=== PATIENT | female | born 1990 | race Caucasian/White ===

== ENCOUNTER → 2018-07-15 | Outpatient (CLI) | payer OTHER ==
[~2018-07-15] MED LIST: ACET500 PO; ALBU90OI INH; ALBU90OI61 INH; ALBUTEROL; AMOCLA875 PO; AMOX; BENADRYL; CEPH500 PO; CRUTCH USE; CYCL10 PO; DIPH50 PO; ERYT.5TO RIGHTEYE; GABA600 PO; HYDACE5 PO; HYDACE5325 PO; HYDR1TAB94 PO; IBUP800 PO; Imitrex100 MG PO; MULVITMINE PO; Naprosyn500 MG PO; ONDA4 PO; ONDA4ODT MM; OXYACE5T PO; Omeprazole20 M1 PO; PRED10 PO; PROM25 PO; RANI150 PO; SERT50 PO; TOPI100 PO; TOPI25 PO; TREXIMET PO; TRILEPTAL; VENL75ER PO; Zofran Odt4 MG SL
[2018-07-15 16:01] LABS: BASOPHILS ABSOLUTE AUTO 0.03 K/mm3 (0.00-0.23); BASOPHILS PERCENT AUTO 0 % (0-2); EOSINOPHILS ABSOLUTE AUTO 0.17 K/mm3 (0.00-0.68); EOSINOPHILS PERCENT AUTO 2 % (0-6); Hematocrit 37.9 % (33.0-51.0); IMMATURE GRAN ABSOLUTE AUTO 0.02 K/mm3 (0.00-0.10); IMMATURE GRAN PERCENT AUTO 0 % (0-1); LYMPHOCYTES ABSOLUTE AUTO 1.71 K/mm3 (0.84-5.20); LYMPHOCYTES PERCENT AUTO 24 % (21-46); MONOCYTES ABSOLUTE AUTO 0.48 K/mm3 (0.16-1.47); MONOCYTES PERCENT AUTO 7 % (4-13); Mean Corpuscular HGB 31.5 pg (26.0-34.0); Mean Corpuscular HGB Conc 34.3 g/dL (31.5-36.5); Mean Corpuscular Volume 92 fL (80-100); Mean Platelet Volume 11.4 fL (9.1-12.4); NEUTROPHILS ABSOLUTE AUTO 4.79 K/mm3 (1.96-9.15); NEUTROPHILS PERCENT AUTO 66 % (41-73); Platelet Count 171 K/mm3 (150-400); RDW Standard Deviation 40.2 fL (35.1-46.3); Red Blood Cell Count 4.13 M/mm3 (3.80-5.20)
[2018-07-15 16:13] LABS: Alanine Aminotransfer (ALT/SGP 24 U/L (12-78); Albumin, Blood 3.9 g/dL (3.4-5.0); Albumin/Globulin Ratio 1.3 (0.8-1.8); Alk Phos 68 U/L (40-126); Anion Gap 9 mmol/L (6-16); Aspartate Aminotrans (AST/SGOT 15 U/L (12-37); Bilirubin, Total 0.4 mg/dL (0.1-1.0); Blood Urea Nitrogen 18 mg/dL (8-24); Bun/Creatinine Ratio 28.6 (12.0-20.0); CO2, Blood 29 mmol/L (21-32); Calcium, Blood 8.8 mg/dL (8.5-10.1); Chloride, Blood 103 mmol/L (98-108); Creatinine, Blood 0.63 mg/dL (0.40-1.00); Globulin, Blood 3.1 g/dL (2.2-4.0); Glomerular Filtration Rate >60 (60-); Glucose, Blood 82 mg/dL (70-99); Potassium, Blood 3.3 mmol/L (3.5-5.5); Sodium, Blood 141 mmol/L (136-145)
== END ==
LOC: LAB EV 15:57 → LAB SHORT 15:57
PROVIDERS: Physician Assistant Medical
DX: N93.9 Abnormal uterine and vaginal bleeding, unspecified (principal)
CPT/HCPCS: 80053; 84702; 85025

== ENCOUNTER 2019-01-08 13:29 | Emergency (ER) | payer OTHER ==
[~2019-01-08] VITALS: Ht 157.5 cm; Wt 74.8 kg
[2019-01-08] MEDS ORDERED: IBUP800 PO (14:07)
[2019-01-08] MEDS ORDERED: Esgic Tablet1 EACH PO (15:27)
== END 2019-01-08 15:32 | disposition home or self-care (01) ==
LOC: ER 13:29
DX: S00.11XA Contusion of right eyelid and periocular area, initial encounter (principal); W50.0XXA Accidental hit or strike by another person, initial encounter; Z88.5 Allergy status to narcotic agent; Z88.8 Allergy status to other drugs, medicaments and biological substances; Z91.018 Allergy to other foods; Z79.899 Other long term (current) drug therapy; G43.909 Migraine, unspecified, not intractable, without status migrainosus; F17.210 Nicotine dependence, cigarettes, uncomplicated
CPT/HCPCS: 70486; 81025; 99284-25

== ENCOUNTER 2019-10-26 10:39 | Emergency (ER) | payer OTHER ==
[~2019-10-26] VITALS: Ht 157.5 cm; Wt 90.7 kg
[~2019-10-26 10:39] MED LIST changes: +Esgic Tablet1 EACH PO; +PRENATAL TABLE1 EAC2 PO
[2019-10-26 11:40] LABS: BASOPHILS ABSOLUTE AUTO 0.05 K/mm3 (0.00-0.23); BASOPHILS PERCENT AUTO 1 % (0-2); EOSINOPHILS ABSOLUTE AUTO 0.14 K/mm3 (0.00-0.68); EOSINOPHILS PERCENT AUTO 2 % (0-6); Hematocrit 37.2 % (33.0-51.0); Hemoglobin 12.5 g/dL (11.5-16.0); IMMATURE GRAN ABSOLUTE AUTO 0.05 K/mm3 (0.00-0.10); IMMATURE GRAN PERCENT AUTO 1 % (0-1); LYMPHOCYTES ABSOLUTE AUTO 1.19 K/mm3 (0.84-5.20); LYMPHOCYTES PERCENT AUTO 14 % (21-46); MONOCYTES ABSOLUTE AUTO 0.63 K/mm3 (0.16-1.47); MONOCYTES PERCENT AUTO 7 % (4-13); Mean Corpuscular HGB 31.4 pg (26.0-34.0); Mean Corpuscular HGB Conc 33.6 g/dL (31.5-36.5); Mean Corpuscular Volume 94 fL (80-100); Mean Platelet Volume 12.2 fL (9.1-12.4); NEUTROPHILS ABSOLUTE AUTO 6.58 K/mm3 (1.96-9.15); NEUTROPHILS PERCENT AUTO 76 % (41-73); Platelet Count 219 K/mm3 (150-400); RDW Coefficient Variation 12.8 % (11.7-14.2); RDW Standard Deviation 43.8 fL (35.1-46.3); Red Blood Cell Count 3.98 M/mm3 (3.80-5.20); White Blood Cell Count 8.64 K/mm3 (4.00-11.30)
[2019-10-26 11:51] LABS: Anion Gap 7 mmol/L (6-16); Blood Urea Nitrogen 10 mg/dL (8-24); Bun/Creatinine Ratio 21.6 (12.0-20.0); CO2, Blood 24 mmol/L (21-32); Calcium, Blood 8.7 mg/dL (8.5-10.1); Chloride, Blood 109 mmol/L (98-108); Creatinine, Blood 0.46 mg/dL (0.40-1.00); Glomerular Filtration Rate >60 (60-); Glucose, Blood 83 mg/dL (70-99); Potassium, Blood 3.8 mmol/L (3.5-5.5); Sodium, Blood 140 mmol/L (136-145)
== END 2019-10-26 14:12 | disposition home or self-care (01) ==
LOC: ER 10:39
PROVIDERS: Emergency Medicine
DX: O99.355 Diseases of the nervous system complicating the puerperium (principal); G44.209 Tension-type headache, unspecified, not intractable; O99.345 Other mental disorders complicating the puerperium; J45.909 Unspecified asthma, uncomplicated; O99.53 Diseases of the respiratory system complicating the puerperium; F41.9 Anxiety disorder, unspecified; F32.9 Major depressive disorder, single episode, unspecified; Z91.048 Other nonmedicinal substance allergy status; Z88.8 Allergy status to other drugs, medicaments and biological substances; Z88.5 Allergy status to narcotic agent
CPT/HCPCS: 36415; 64405; 80048; 85025; 96361-59; 96374-59; 96375-59; 99284-25; J1200; J2001; J2765; J7120

== ENCOUNTER → 2019-11-27 | Outpatient (CLI) | payer OTHER | END | disposition home or self-care (01) | LOC: LAB EV 14:14 → LAB SHORT 14:14 | DX: R30.9 Painful micturition, unspecified (principal) | CPT/HCPCS: 87086 ==

== ENCOUNTER → 2024-03-17 | Outpatient (CLI) | payer OTHER | LOC: LAB 15:55 → LAB SHORT 15:55 | DX: R30.0 Dysuria (principal) | CPT/HCPCS: 87086 ==